=== PATIENT | female | born 1995 | race African-American/Black ===

== ENCOUNTER 2016-06-01 19:34 | Emergency (ER) | payer MEDICAID ==
[2016-06-01] MEDS ORDERED: NS 0.9% 1000 ML* 1,000 ML IV ONE (20:15)
[2016-06-01] MEDS ORDERED: Ondansetron INJ* 2 MG/ML VIAL IV ONE (20:15)
[2016-06-01 20:55] LABS: Hematocrit 42 % (35-47); Mean Corpuscular HGB Conc 33 g/dl (31-36); Mean Corpuscular Hemoglobin 29 pg (27-31); Mean Corpuscular Volume 88 fL (80-97); Mean Platelet Volume 9 um3 (7.4-10.4); Red Blood Count 4.82 10^6/ul (4.0-5.4); Red Cell Distribution Width 14 % (10.5-15); White Blood Count 10.7 10^3/ul (3.5-10.8)
[2016-06-01 21:05] LABS: Albumin 3.4 g/dL (3.2-5.2); BUN/Creatinine Ratio 11.3 (8-20); C Reactive Protein 7.92 mg/L (< 5.00); EGFR African American 187.3 (>60); EGFR Non-African American 145.6 (>60); Magnesium 1.8 mg/dL (1.9-2.7); Potassium 3.5 mmol/L (3.5-5.0); Total Bilirubin 0.4 mg/dL (0.2-1.0); Total Protein 6.4 g/dL (6.4-8.9); Urine Bacteria Absent (Absent); Urine Bilirubin Negative (Negative); Urine Glucose Negative (Negative); Urine Nitrite Negative (Negative)
--- NOTE | 2016-06-01 21:55 | ED ---
idris Romero Timothy, scribed for Jaquan Escudero MD on 06/01/16 at 2015 . GI/ HPI - HPI Summary HPI Summary: Nu Calderon is a 20 yo female presenting to [facility] 3 months with increased nausea and vomiting since 05/31/16 with no vomiting this date. She states she ate lightly today, and is not in any current pain. Her MHx includes herpes - History of Current Complaint Time Seen by Provider: 06/01/16 20:13 Stated Complaint: 3 WKS PREG/VOMITING Hx Obtained From: Patient Onset/Duration: Started Days Ago, Still Present Timing: Constant Severity: Moderate Current Severity: Moderate Pain Intensity: 0 Location of Pain: None Associated Signs and Symptoms: Positive: Nausea, Vomiting, Change in Appetite - loss Aggravating Factor(s): Nothing Alleviating Factor(s): Nothing - Allergy/Home Medications Allergies/Adverse Reactions: Allergies Allergy/AdvReac Type Severity Reaction Status Date / Time No Known Allergies Allergy Verified 06/01/16 19:54 PMH/Surg Hx/FS Hx/Imm Hx History: Reports: Other Problems/Disorders - Herpes Infectious Disease History: No Infectious Disease History: Denies: Traveled Outside the [place] in Last 30 Days - Family History Known Family History: Positive: Cardiac Disease, Hypertension, Diabetes - Social History Alcohol Use: Rare Hx Substance Use: No Substance Use Type: Reports: None Hx Tobacco Use: No Smoking Status (MU): Never Smoked Tobacco Review of Systems Constitutional: Negative Eyes: Negative ENT: Negative Cardiovascular: Negative Respiratory: Negative Positive: Vomiting, Nausea. Negative: Abdominal Pain Genitourinary: Negative Musculoskeletal: Negative Skin: Negative Neurological: Negative Psychological: Normal All Other Systems Reviewed And Are Negative: Yes Physical Exam Triage Information Reviewed: Yes Vital Signs On Initial Exam: Initial Vitals Temp Pulse Resp BP Pulse Ox 97.5 F 92 16 131/78 100 06/01/16 19:45 06/01/16 19:45 06/01/16 19:45 06/01/16 19:45 06/01/16 19:45 Vital Signs Reviewed: Yes Appearance: Positive: Well-Appearing, No Pain Distress Skin: Positive: Warm Head/Face: Positive: Normal Head/Face Inspection ENT: Positive: Hearing grossly normal Neck: Positive: Supple Respiratory/Lung Sounds: Positive: Clear to Auscultation, Breath Sounds Present Cardiovascular: Positive: RRR Abdomen Description: Positive: Nontender, Soft Bowel Sounds: Positive: Present Musculoskeletal: Positive: Strength/ROM Intact Neurological: Positive: Sensory/Motor Intact, Alert, Oriented to Person Place, Time Psychiatric: Positive: Affect/Mood Appropriate Diagnostics - Vital Signs Vital Signs Temp Pulse Resp BP Pulse Ox 06/01/16 19:45 97.5 F 92 16 131/78 100 - Laboratory Lab Results: Lab Results 06/01/16 06/01/16 06/01/16 Range/Units 20:40 20:40 20:40 WBC 10.7 (3.5-10.8) 10^3/ul RBC 4.82 (4.0-5.4) 10^6/ul Hgb 14.0 (12.0-16.0) g/dl Hct 42 (35-47) % MCV 88 (80-97) fL MCH 29 (27-31) pg MCHC 33 (31-36) g/dl RDW 14 (10.5-15) % Plt Count 210 (150-450) 10^3/ul MPV 9 (7.4-10.4) um3 Neut % (Auto) 66.8 (38-83) % Lymph % (Auto) 26.5 (25-47) % [place] % (Auto) 6.2 (1-9) % Eos % (Auto) 0.3 (0-6) % Baso % (Auto) 0.2 (0-2) % Absolute Neuts (auto) 7.1 (1.5-7.7) 10^3/ul Absolute Lymphs (auto) 2.8 (1.0-4.8) 10^3/ul Absolute Monos (auto) 0.7 (0-0.8) 10^3/ul Absolute Eos (auto) 0 (0-0.6) 10^3/ul Absolute Basos (auto) 0 (0-0.2) 10^3/ul Absolute Nucleated RBC 0.01 10^3/ul Nucleated RBC % 0 Sodium 136 (133-145) mmol/L Potassium 3.5 (3.5-5.0) mmol/L Chloride 105 (101-111) mmol/L Carbon Dioxide 23 (22-32) mmol/L Anion Gap 8 (2-11) mmol/L BUN 6 (6-24) mg/dL Creatinine 0.53 (0.51-0.95) mg/dL Est GFR ( Amer) 187.3 (>60) Est GFR (Non-Af Amer) 145.6 (>60) BUN/Creatinine Ratio 11.3 (8-20) Glucose 88 (70-100) mg/dL Calcium 9.0 (8.6-10.3) mg/dL Magnesium 1.8 L (1.9-2.7) mg/dL Total Bilirubin 0.40 (0.2-1.0) mg/dL AST 24 (13-39) U/L ALT 17 (7-52) U/L Alkaline Phosphatase 65 (34-104) U/L C-Reactive Protein 7.92 H (< 5.00) mg/L Total Protein 6.4 (6.4-8.9) g/dL Albumin 3.4 (3.2-5.2) g/dL Globulin 3.0 (2-4) g/dL Albumin/Globulin Ratio 1.1 (1-3) Lipase 19 (11.0-82.0) U/L Beta HCG, Quant 95352.00 mIU/mL Urine Color Yellow Urine Appearance Cloudy Urine pH 6.0 (5-9) Ur Specific Bernice 1.020 (1.010-1.030) Urine Protein Negative (Negative) Urine Ketones Negative (Negative) Urine Blood Negative (Negative) Urine Nitrate Negative (Negative) Urine Bilirubin Negative (Negative) Urine Urobilinogen Negative (Negative) Ur Leukocyte Esterase 2+ H (Negative) Urine WBC (Auto) Trace(0-5/hpf) (Absent) Urine RBC (Auto) 1+(3-5/hpf) H (Absent) Ur Squamous Epith Cells Present H (Absent) Urine Bacteria Absent (Absent) Urine Glucose Negative (Negative) Result Diagrams: 06/01/16 20:40 06/01/16 20:40 Lab Statement: Any lab studies that have been ordered have been reviewed, and results considered in the medical decision making process. Re-Evaluation - Re-Evaluation First Eval Change: Improved - tolerating po GIGU Course/Dx - Course Assessment/Plan: Nu Calderon is a 20 yo female presenting to [facility] 3 months with increased nausea and vomiting since 05/31/16 with no vomiting this date. In the ED, Pt received Zofran to control nausea and vomiting and IV fluids. After clinical examination and review of her lab work, she will be discharged home with Hyperemesis gravidarum and appropriate instructions. - Diagnoses Provider Diagnoses: Hyperemesis gravidarum Discharge - Discharge Plan Condition: Improved Disposition: HOME Patient Education Materials: Hyperemesis Gravidarum (ED) Referrals: No Primary Care Phys,NOPCP [Primary Care Provider] - [facility] [place] PHYSICIAN REFERRAL [Outside] - 2 Days Additional Instructions: Please follow up with the primary care physician provided regarding your visit to the emergency department today. Return to the emergency department with any new or recurring symptoms. The documentation as recorded by the idris garcia Timothy accurately reflects the service I personally performed and the decisions made by me, Jaquan Escudero MD.
[2016-06-01 22:21] VITALS: BP 131/89
== END 2016-06-01 22:20 | disposition home or self-care (01) ==
LOC: ED 19:34
DX: O21.0 Mild hyperemesis gravidarum (principal); Z3A.01 Less than 8 weeks gestation of pregnancy
CPT/HCPCS: 36415; 80053; 81003; 81015; 83690; 83735; 84702; 85025; 86140; 86703; 87086; 96361; 96374; 99283; J2405

== ENCOUNTER 2016-06-04 10:01 | Emergency (ER) | payer MEDICAID ==
[2016-06-04] MEDS ORDERED: diPHENhydraMINE IV* 50 MG/ML 1 ml VIAL (BENADRYL) IV ONE (10:53)
[2016-06-04] MEDS ORDERED: Ondansetron INJ* 2 MG/ML VIAL IV ONE (10:55)
[2016-06-04] MEDS: NS 0.9% 1000 ML* 2,000 ML IV ONE (12:05)
--- NOTE | 2016-06-04 13:23 | ED ---
- HPI Summary HPI Summary: Patient presents with uncontrolled nausea for 24 hours. She has not been able to consume fluids and the medication she was given by her [employer] [facility] is not helping. She denies fever, chills, abdominal pain, CABRERA or myalgias. - History of Current Complaint Chief Complaint: EDEvelynuseVidaarrpaco Stated Complaint: 13WKS PREG/VOMITING-NAUSEA Time Seen by Provider: 06/04/16 10:22 Hx Obtained From: Patient, Family/Relief Docking Master Chief Complaint: Other: - nausea Onset/Duration: Started Days Ago - 1, Atraumatic Timing: Constant Severity: Moderate Current Severity: Moderate Pain Intensity: 0 Location of Pain: None Character: None Associated Signs and Symptoms: Positive: Nausea, Vomiting - Assessment Hx Now: No Vaginal Bleeding Amount: None - Allergies/Home Medications Allergies/Adverse Reactions: Allergies Allergy/AdvReac Type Severity Reaction Status Date / Time No Known Allergies Allergy Verified 06/01/16 19:54 PMH/Surg Hx/FS Hx/Imm Hx History: Reports: Other Problems/Disorders - Herpes Infectious Disease History: No Infectious Disease History: Denies: Traveled Outside the [place] in Last 30 Days - Family History Known Family History: Positive: Cardiac Disease, Hypertension, Diabetes - Social History Occupation: Employed Full-time Lives: With Family Alcohol Use: Rare Hx Substance Use: No Substance Use Type: Reports: None Hx Tobacco Use: No Smoking Status (MU): Never Smoked Tobacco Review of Systems Negative: Fever, Chills Negative: Chest Pain Negative: Shortness Of Breath Positive: Vomiting, Nausea. Negative: Abdominal Pain, Diarrhea Negative: Myalgia, Edema Negative: Headache All Other Systems Reviewed And Are Negative: Yes Physical Exam - Physical Exam Triage Information Reviewed: Yes Vital Signs Reviewed: Yes Appearance: Positive: Well-Appearing, No Pain Distress, Well-Nourished Skin: Positive: Warm, Skin Color Reflects Adequate Perfusion, Dry, Soft Head/Face: Positive: Normal Head/Face Inspection Eyes: Positive: EOMI, JAMA, Conjunctiva Clear ENT: Positive: Hearing grossly normal, Pharynx normal Neck: Positive: Supple, Nontender, No Lymphadenopathy Respiratory/Lung Sounds: Positive: Clear to Auscultation, Breath Sounds Present Cardiovascular: Positive: RRR Abdomen Description: Positive: Nontender, Soft. Negative: CVA Tenderness (R), CVA Tenderness (L), Distended, Guarding Bowel Sounds: Positive: Present Musculoskeletal: Negative: Edema Left, Edema Right Neurological: Positive: Sensory/Motor Intact, Alert, Oriented to Person Place, Time, NV Bundle Intact Distally, Normal Gait Psychiatric: Positive: Affect/Mood Appropriate AVPU Assessment: Alert Diagnostics - Vital Signs Vital Signs Temp Pulse Resp BP Pulse Ox 06/04/16 10:03 96.8 F 84 16 128/77 100 - Laboratory Lab Statement: Any lab studies that have been ordered have been reviewed, and results considered in the medical decision making process. Re-Evaluation - Re-Evaluation First Eval Re-Evaluation Time: 13:00 Change: Improved - nausea has been controlled. Course/Dx - Differential Diagnosis/HQI/PQRI: Hyperemesis Gravidarum, Early , Other : - nausea - Diagnoses Provider Diagnoses: Nausea and vomiting during Discharge - Discharge Plan Condition: Stable Disposition: HOME Prescriptions: Ondansetron ODT TAB* [Zofran 4 MG Odt TAB*] 4 mg PO QID PRN #20 tab.odt PRN Reason: Nausea Patient Education Materials: Nausea and Vomiting in (ED) Additional Instructions: Please use the medication provided to help decrease your nausea. Drink extra fluids to avoid dehydration. Call your [employer] to discuss today's visit. Return to the emergency department if symptoms worsen.
[2016-06-04 14:35] VITALS: BP 136/77
== END 2016-06-04 14:59 | disposition home or self-care (01) ==
LOC: ED 10:01
DX: O21.9 Vomiting of pregnancy, unspecified (principal); Z3A.13 13 weeks gestation of pregnancy
CPT/HCPCS: 96374; 96375; 99282; J1200; J2405

== ENCOUNTER 2016-11-27 19:45 | Inpatient (IN) | payer MEDICAID ==
[2016-11-27 21:44] LABS: Hematocrit 42 % (35-47); Hemoglobin 14.3 g/dl (12.0-16.0); Mean Corpuscular HGB Conc 34 g/dl (31-36); Mean Corpuscular Hemoglobin 31 pg (27-31); Mean Corpuscular Volume 91 fL (80-97); Mean Platelet Volume 9 um3 (7.4-10.4); Red Blood Count 4.62 10^6/ul (4.0-5.4); Red Cell Distribution Width 14 % (10.5-15); White Blood Count 8.5 10^3/ul (3.5-10.8)
[2016-11-27 21:59] LABS: Albumin 3.4 g/dL (3.2-5.2); BUN/Creatinine Ratio 12.2 (8-20); Calcium 9.3 mg/dL (8.6-10.3); EGFR African American 203.1 (>60); EGFR Non-African American 157.9 (>60); Globulin 3.1 g/dL (2-4); Potassium 3.8 mmol/L (3.5-5.0); Total Bilirubin 0.5 mg/dL (0.2-1.0); Total Protein 6.5 g/dL (6.4-8.9); Uric Acid 4.9 mg/dL (2.3-6.6)
[2016-11-27] MEDS ORDERED: Oxytocin in LR* 20 UNITS/1,000 ML BAG IVPB SCH (22:00)
[2016-11-28] MEDS ORDERED: OBEPIDURAL* 250 ML ONE (01:09)
[2016-11-28] MEDS ORDERED: EPHEDrine (Pressors)* 50 MG/ML VIAL IV PUSH PRN ×2 (02:21)
[2016-11-28] MEDS ORDERED: Famotidine TAB* 20 MG PO PRN (02:21)
[2016-11-28] MEDS ORDERED: Sodium Citrate/Citric Acid* 15 ML UDC PO PRN (02:21)
[2016-11-28] MEDS ORDERED: Phenylephrine IV* 40 MCG/ML 10 ML SYRINGE IV PUSH PRN ×2 (02:21)
[2016-11-28] MEDS ORDERED: OBEPIDURAL* 250 ML EPIDURAL SCH (03:00)
[2016-11-28] MEDS ORDERED: Glycerin ADULT SUPP PR PRN (13:53)
[2016-11-28] MEDS ORDERED: Acetaminophen TAB* 325 MG PO PRN (13:53)
[2016-11-28] MEDS: Witch Hazel PAD* JAR TOPICAL PRN (15:24)
[2016-11-28] MEDS: Ibuprofen TAB* 600 MG PO PRN ×2 (15:25→21:38)
[2016-11-28] MEDS: Dibucaine 1% 28.35 GM TUBE PR PRN (15:25)
[2016-11-28] MEDS: Docusate CAP* 100 MG PO SCH ×2 (15:25→21:38)
[2016-11-28] MEDS ORDERED: Simethicone TAB* 80 MG TAB.CHEW PO SCH (17:30)
[2016-11-29] MEDS: Ibuprofen TAB* 600 MG PO PRN ×3 (04:50→16:41)
[2016-11-29 06:28] LABS: Hematocrit 30 % (35-47); Hemoglobin 10.2 g/dl (12.0-16.0); Mean Corpuscular HGB Conc 34 g/dl (31-36); Mean Corpuscular Hemoglobin 30 pg (27-31); Mean Corpuscular Volume 90 fL (80-97); Mean Platelet Volume 9 um3 (7.4-10.4); Red Blood Count 3.37 10^6/ul (4.0-5.4); Red Cell Distribution Width 15 % (10.5-15); White Blood Count 9.5 10^3/ul (3.5-10.8)
[2016-11-29] MEDS: Dibucaine 1% 28.35 GM TUBE PR PRN (08:27)
[2016-11-29] MEDS: Witch Hazel PAD* JAR TOPICAL PRN (08:27)
[2016-11-29] MEDS: Docusate CAP* 100 MG PO SCH ×3 (08:52→21:22)
[2016-11-29] MEDS: Ferrous Gluconate TAB* 324 MG TAB PO SCH ×2 (09:12→21:22)
[2016-11-30] MEDS: Ibuprofen TAB* 600 MG PO PRN ×2 (06:35→12:11)
[2016-11-30] MEDS: Docusate CAP* 100 MG PO SCH (08:51)
[2016-11-30] MEDS: Witch Hazel PAD* JAR TOPICAL PRN (11:24)
[2016-11-30] MEDS: Dibucaine 1% 28.35 GM TUBE PR PRN (11:24)
[2016-11-30 12:15] VITALS: BP 137/82
== END 2016-11-30 12:32 | disposition home or self-care (01) | DRG 560 ==
LOC: MCHOBOUT 19:45 → MCHOB 20:52
PROVIDERS: ADMIT Obstetrics & Gynecology; ATTEND Obstetrics & Gynecology
PROC: 10907ZC Drainage of Amniotic Fluid, Therapeutic from Products of Conception, Via Natural or Artificial Opening (ICD-10-PCS; principal; 2016-11-28)
PROC: 10D07Z6 Extraction of Products of Conception, Vacuum, Via Natural or Artificial Opening (ICD-10-PCS; 2016-11-28)
PROC: 4A1HXCZ Monitoring of Products of Conception, Cardiac Rate, External Approach (ICD-10-PCS; 2016-11-28)
PROC: 3E0P3VZ Introduction of Hormone into Female Reproductive, Percutaneous Approach (ICD-10-PCS; 2016-11-28)
PROC: 0KQM0ZZ Repair Perineum Muscle, Open Approach (ICD-10-PCS; 2016-11-28)
PROC: 3E033XZ Introduction of Vasopressor into Peripheral Vein, Percutaneous Approach (ICD-10-PCS; 2016-11-28)
DX: O99.214 Obesity complicating childbirth (principal); Z68.41 Body mass index [BMI] 40.0-44.9, adult; E66.01 Morbid (severe) obesity due to excess calories; O70.1 Second degree perineal laceration during delivery; Z3A.38 38 weeks gestation of pregnancy; Z37.0 Single live birth
CPT/HCPCS: 36415; 80053; 84550; 85025; 86850; 86900; 86901; A9270-GY

== ENCOUNTER 2018-08-08 07:43 | Inpatient (IN) | payer OTHER ==
[2018-08-08] MEDS ORDERED: Buffered Lidocaine 1% SYRIN* 1 ML/SYRINGE INTRADERM ONE (07:47)
[2018-08-08] MEDS ORDERED: Lactated Ringers 1000 ML Bag* 1,000 ML IV ONE ×2 (07:47→12:40)
[2018-08-08] MEDS ORDERED: Lactated Ringers 1000 ML Bag* 1,000 ML IV SCH ×3 (08:00→17:00)
[2018-08-08] MEDS ORDERED: Oxytocin in LR* 20 UNITS/1,000 ML BAG IVPB SCH ×2 (08:00→17:00)
--- NOTE | 2018-08-08 09:11 | HP ---
General Information - General Information Maternal Age: 23 Grav: 2 Para: 1 SAB: 0 IEA: 0 Estimated Due Date: 08/28/18 Determined By: Early Ultrasound Maternal Blood Type and Rh: A Positive - Results this Serology/RPR Result: Non-Reactive Rubella Result: Immune HBsAg Result: Negative HIV Result: Negative GBS Culture Result: Negative Past Medical History Delivery History: Hx Uncomplicated Vaginal Delivery Pertinent Past Medical History: See Records Pertinent Past Surgical History: See Records Pertinent Family History: See Records - Antepartal Records Antepartal Records: Reviewed, Complicated by: - mild preeclampsia Review of Systems Constitutional: Comfortable CV Complaint: No Respiratory: Shortness of Breath: No Gastrointestinal: No Nausea/Vomiting Genitourinary: No Bleeding, No Leaking Fluid Musculoskeletal: No Complaint Neurological: No Headache Movement: Normal Exam Allergies/Adverse Reactions: Allergies No Known Allergies Allergy (Verified 11/29/16 10:54) - Measurements Pre- Weight: 246 lb - Exam Breast: Breast Exam Deferred Extremities: Edema - 1+ Heart: Normal Rhythm/Heart Sounds HEENT: No Significant Findings Lungs: Clear Bilaterally Rectal: Rectal Exam Deferred Reflexes: DTR 2+ Targeted Exam Findings See L&D Outpatient Visit Provider Note for Findings: N/A Estimated Weight: 6 lbs Cervical Exam: 3cm Effacement: 80% Station: -1 Presenting Part: Vertex Membrane Status: AROM EFM Findings - External Monitor Findings Baseline Heart Rate: 135 External Monitor Findings: Accelerations Present, Variability Moderate Contractions: None Assessment/Plan - Assessment mild preeclampsia at 37 weeks for induction of labor - Obstetrical Risk Factors Obstetrical Risk Factors: PreEclampsia - Plan Plan: Induction, Admit - Anticipate Vaginal Delivery
[2018-08-08 09:47] LABS: ABS Lymphocytes 1.5 10^3/ul (1.0-4.8); ABS Monocytes 0.6 10^3/ul (0-0.8); ABS Neutrophils 5.8 10^3/ul (1.5-7.7); Eosinophil % 0.1 %; Hematocrit 44 % (35-47); Lymphocyte % 18.6 %; Mean Corpuscular HGB Conc 34 g/dL (31-36); Mean Corpuscular Hemoglobin 30 pg (27-31); Mean Corpuscular Volume 88 fL (80-97); Mean Platelet Volume 9.2 fL (7.4-10.4); Nucleated Red Blood Cells % 0.1; Platelet Count 184 10^3/uL (150-450); Red Blood Count 4.98 10^6 /uL (3.70-4.87); Red Cell Distribution Width 15 % (10-15); White Blood Count 7.9 10^3/uL (3.5-10.8)
[2018-08-08 10:06] LABS: Albumin 3.9 g/dL (3.2-5.2); Albumin/Globulin Ratio 1.1 (1-3); BUN/Creatinine Ratio 16.4 (8-20); Calcium 10.3 mg/dL (8.6-10.3); EGFR African American 164.3 (>60); EGFR Non-African American 135.8 (>60); Globulin 3.4 g/dL (2-4); Total Bilirubin 0.4 mg/dL (0.2-1.0); Total Protein 7.3 g/dL (6.4-8.9)
[2018-08-08] MEDS ORDERED: OBEPIDURAL* 250 ML EPIDURAL ONE (12:06)
[2018-08-08] MEDS ORDERED: Famotidine TAB* 20 MG PO PRN (12:40)
[2018-08-08] MEDS ORDERED: Phenylephrine 40 MCG/ML SYRINGE IV PUSH PRN ×2 (12:40)
[2018-08-08] MEDS ORDERED: EPHEDrine (Pressors)* 50 MG/ML VIAL IV PUSH PRN (12:40)
[2018-08-08] MEDS ORDERED: Sodium Citrate/Citric Acid* 15 ML UDC PO PRN (12:40)
[2018-08-08] MEDS ORDERED: OBEPIDURAL* 250 ML EPIDURAL SCH (13:00)
[2018-08-08] MEDS ORDERED: Witch Hazel PAD* JAR TOPICAL PRN (16:33)
[2018-08-08] MEDS ORDERED: Glycerin ADULT SUPP PR PRN (16:33)
[2018-08-08] MEDS ORDERED: Acetaminophen TAB* 325 MG PO PRN (16:33)
[2018-08-08] MEDS ORDERED: Dibucaine 1% 28.35 GM TUBE PR PRN (16:33)
[2018-08-08] MEDS ORDERED: Simethicone TAB* 80 MG TAB.CHEW PO SCH (17:30)
[2018-08-08] MEDS: Ibuprofen TAB* 600 MG PO PRN (19:17)
[2018-08-08] MEDS: Docusate CAP* 100 MG PO SCH (20:43)
--- NOTE | 2018-08-08 23:00 | PROCNOTE ---
[facility] OB: Delivery Note - Delivery A Date of : 08/08/18 Time of : 16:23 Weight at : 7 lb 11 oz Score 1 Minute: 9 Score 5 Minutes: 9 Gestational Age in Weeks and Days at Delivery: 37 Weeks and 1 Days Delivery Method: Spontaneous Vaginal Labor: Induced Did Patient attempt ?: N/A, No Previous Amniotic Fluid: Clear Estimated Blood Loss: 200 Anesthesia/Analgesia: CEI for Labor Delivered By: Mo Shrestha - Nursery Level of Nursery: Regular/Bedside - Perineum Perineal Injury: None/Intact - Events Delivery Events of Note: Pitocin During Labor - Additional Delivery Notes Additional Delivery Notes: pt pushed x 3 with rapid delivery/shoulders transverse but easily delivered
[2018-08-09 07:14] LABS: ABS Lymphocytes 1.8 10^3/ul (1.0-4.8); ABS Monocytes 0.5 10^3/ul (0-0.8); ABS Neutrophils 6.6 10^3/ul (1.5-7.7); Eosinophil % 0.3 %; Hematocrit 36 % (35-47); Hemoglobin 12.4 g/dL (12.0-16.0); Lymphocyte % 19.8 %; Mean Corpuscular HGB Conc 35 g/dL (31-36); Mean Corpuscular Hemoglobin 30 pg (27-31); Mean Corpuscular Volume 87 fL (80-97); Mean Platelet Volume 9.3 fL (7.4-10.4); Nucleated Red Blood Cells % 0.1; Platelet Count 151 10^3/uL (150-450); Red Cell Distribution Width 15 % (10-15); White Blood Count 8.9 10^3/uL (3.5-10.8)
[2018-08-09] MEDS: Docusate CAP* 100 MG PO SCH ×3 (08:53→20:36)
[2018-08-09] MEDS: Ibuprofen TAB* 600 MG PO PRN ×2 (08:53→14:26)
[2018-08-09] MEDS ORDERED: Ferrous Gluconate TAB* 324 MG TAB PO SCH (09:00)
[2018-08-10] MEDS: Docusate CAP* 100 MG PO SCH ×2 (07:53→13:57)
[2018-08-10] MEDS: Ibuprofen TAB* 600 MG PO PRN ×2 (07:53→13:58)
[2018-08-10 08:05] VITALS: BP 142/86
== END 2018-08-10 17:43 | disposition home or self-care (01) | DRG 560 ==
LOC: MCHOBOUT 07:43 → MCHOB 09:13
PROVIDERS: ADMIT Obstetrics & Gynecology; ATTEND Obstetrics & Gynecology
PROC: 10E0XZZ Delivery of Products of Conception, External Approach (ICD-10-PCS; principal; 2018-08-08)
PROC: 4A1HXCZ Monitoring of Products of Conception, Cardiac Rate, External Approach (ICD-10-PCS; 2018-08-08)
PROC: 10907ZC Drainage of Amniotic Fluid, Therapeutic from Products of Conception, Via Natural or Artificial Opening (ICD-10-PCS; 2018-08-08)
PROC: 3E033VJ Introduction of Other Hormone into Peripheral Vein, Percutaneous Approach (ICD-10-PCS; 2018-08-08)
DX: O14.04 Mild to moderate pre-eclampsia, complicating childbirth (principal); O98.52 Other viral diseases complicating childbirth; Z37.0 Single live birth; O99.214 Obesity complicating childbirth; E66.01 Morbid (severe) obesity due to excess calories; A60.00 Herpesviral infection of urogenital system, unspecified; Z3A.37 37 weeks gestation of pregnancy
CPT/HCPCS: 36415; 80053; 85025; 86850; 86900; 86901; A9270-GY